=== PATIENT | female | born 1980 | race Caucasian/White ===

== ENCOUNTER 2018-04-22 08:12 | Inpatient (IN) | payer OTHER, MEDICAID ==
[~2018-04-22] VITALS: Ht 170.2 cm; Wt 67.1 kg
[~2018-04-22 08:12] MED LIST: ADDERALL 10 MG10 MG PO; ALEVE220 MG; ANTIDEPRESSANT; DICLOFENAC SODI75 MG PO; FLEXERIL PO; HYDROCODON-ACE1 EAC7 PO; HYDROCODONE-AP1 EAC6 PO; IBUPROFEN 800800 M1 PO; LAMICTAL 25 MG25 MG PO; MEDROL DOSPAK21 TA1 PO; MEDROLDOSEPACK PO; NAPROSYN500 MG PO; NORCO 5-325 TA1 EACH PO; PENICILLIN VK250 MG; PENICILLIN VK250 MG PO; PHENADOZ25 MG RC; PREDNISONE50 MG PO; PROZAC; RITALIN5 MG; ROBAXIN 750 MG750 M1 PO; TRAMADOL 50 MG50 MG PO; ZOFRAN ODT4 MG PO; [UNRECOGNIZED DRUG - REMARK]; amoxicillin
[2018-04-22 08:13] VITALS: BP 115/59
[2018-04-22 08:33] LABS: ABSOLUTE BASOPHILS 0.1 thou/uL (0.0-0.2); ABSOLUTE EOSINOPHILS 0.1 thou/uL (0.0-0.7); ABSOLUTE LYMPHOCYTES 1.2 thou/uL (0.8-5.3); ABSOLUTE MONOCYTES 0.5 thou/uL (0.0-1.2); ABSOLUTE NEUTROPHILS 7.8 thou/uL (1.6-8.1); EOSINOPHILS 1.5 %; HEMATOCRIT 42.9 % (37.0-47.0); HEMOGLOBIN 14.6 gm/dL (12.0-15.0); LYMPHOCYTES 12.2 %; MCHC 33.9 g/dL (28.0-37.0); MCV 94.3 fL (80.0-100.0); MONOCYTES 4.9 %; MPV 10.8 fl. (7.2-11.1); NUCLEATED RBCS 0 /100WBC; PLATELET COUNT* 232 thou/uL (150-400); POLYS 80.4 %; RBC 4.55 mil/uL (4.20-5.00); RDW-CV 13.5 % (10.5-14.5); WBC 9.8 thou/uL (4.0-11.0)
[2018-04-22 08:50] LABS: ANION GAP 9 mmol/L (7-16); BUN 10 mg/dL (7-18); CALCIUM 8.7 mg/dL (8.5-10.1); CHLORIDE 106 mmol/L (98-107); CO2 26 mmol/L (21-32); CREATININE 0.8 mg/dL (0.6-1.3); GLUCOSE 97 mg/dL (70-99); POTASSIUM 3.4 mmol/L (3.5-5.1); SODIUM 141 mmol/L (136-145)
[2018-04-22 09:02] LABS: ALBUMIN 3.5 g/dL (3.4-5.0); ALKALINE PHOSPHATASE 78 U/L (46-116); LIPASE 97 U/L (73-393); SGOT 12 U/L (15-37); SGPT 12 U/L (30-65); TOTAL BILIRUBIN 0.7 mg/dL (<0.1-1.0); TOTAL PROTEIN 6.6 g/dL (6.4-8.2); TROPONIN-I LEVEL <0.06 ng/mL (<0.06)
[2018-04-22 10:01] LABS: URINE BLOOD 3+ (Negative); URINE CLARITY SL CLOUDY; URINE COLOR BROWN; URINE GLUCOSE-RANDOM NEGATIVE (Negative); URINE KETONES 2+ (Negative); URINE LEUKOCYTES-REFLEX NEGATIVE (Negative); URINE NITRITE-REFLEX NEGATIVE (Negative); URINE PROTEIN 1+ (Negative); URINE SPECIFIC GRAVITY <= 1.005 (1.005-1.030); URINE UROBILINOGEN 0.2 E.U./dl (0.2-1.0)
[2018-04-22 10:11] LABS: URINE BILIRUBIN 1+ (Negative)
[2018-04-22 10:13] LABS: ICTOTEST (BILI CONFIRMATORY) Negative (Negative)
[2018-04-22 10:14] LABS: SQUAMOUS 4-10 Moderate /LPF (0-3)
[2018-04-22 10:15] LABS: BACTERIA-REFLEX 1-9 Few /HPF (None Seen); CASTS None Seen /LPF (None Seen); CRYSTALS None Seen /LPF (None Seen); MUCUS None Seen strn/LPF (None Seen); URINE RBC >20 Many /HPF (0-2); URINE WBC-REFLEX 0-5 Rare /HPF (0-5)
[2018-04-22 16:21] VITALS: BP 139/86
--- NOTE | 2018-04-22 18:51 | NUR ---
ALERT AND ORIENTED X4. HAS BEEN SLEEPING SINCE ARRIVAL TO UNIT. AROUSES EASILY. PAIN AND NAUSEA MANAGED WITH IV MEDICATION IN ED. VSS ON ROOM AIR. HOURLY ROUNDS HAVE BEEN MAINTAINED THROUGHOUT SHIFT. CALL LIGHT IS WITHIN REACH. NURSING WILL CONTINUE TO MONITOR.
[2018-04-22 20:30] VITALS: BP 107/65
[2018-04-23 01:21] LABS: HEMATOCRIT 38.4 % (37.0-47.0); HEMOGLOBIN 12.7 gm/dL (12.0-15.0); MCH 31.8 pg (26.0-34.0); MCHC 33.1 g/dL (28.0-37.0); MCV 96.1 fL (80.0-100.0); MPV 11.1 fl. (7.2-11.1); RDW-CV 13.5 % (10.5-14.5); WBC 12.1 thou/uL (4.0-11.0)
[2018-04-23 01:23] LABS: CALCIUM 8.2 mg/dL (8.5-10.1); CREATININE 0.7 mg/dL (0.6-1.3); MAGNESIUM 1.8 mg/dL (1.8-2.4); POTASSIUM 3.9 mmol/L (3.5-5.1)
--- NOTE | 2018-04-23 04:46 | NUR ---
PATIENT REMAINS ALERT AND ORIENTED X4 THROUGHOUT SHIFT. VITAL SIGNS STABLE ON ROOM AIR. IV PATENT IN THE RIGHT AC INFUSING AT 100 ML/HR. PAIN AND NAUSEA MANAGED WITH IV MEDICATION PER ORDERS. TRANSFERRING AD ETIENNE TO THE RESTROOM. STRAINING URINE. REPOSITIONING SELF IN BED. RESTING COMFORTABLY THROUGHOUT THE NIGHT. NPO STATUS AT MIDNIGHT, PATIENT STATED "I AM STILL GETTING DRINKS OUT OF THE SINK." PATIENT EDUCATION ON THE IMPORTANCE OF MAINTAINING NPO STATUS. HOURLY ROUNDING COMPLETE. CALL LIGHT WITHIN REACH. NURSING WILL CONTINUE TO MONITOR.
[2018-04-23 08:40] VITALS: BP 112/64
--- NOTE | 2018-04-23 09:33 | EKG ---
[place] [address] ELECTROCARDIOGRAM REPORT Name: LENA ORTAA Room: [address] IN [facility]#: [id number] Admission: 04/22/18 Attend Phys: Tony Dougherty, Discharge: Date of : 78 Report #: [id number] THIS REPORT FOR: //name// [facility] ED Test Date: 2018-04-22 Test Time: 08:48:28 Pat Name: AMARA ORTA Department: Room: Gender: F [place] Man: HAILEE : 1980 Requested By: Reyes Cardenas Order Number: [id number] MD: Sd Verma Measurements Intervals [place] Rate: 42 P: 69 CA: 206 QRS: 76 QRSD: 95 T: 59 QT: 475 QTc: 397 Interpretive Statements Sinus bradycardia Baseline wander in lead(s) V2,V3 No previous ECG available for comparison Electronically Signed On 04-23-2018 9:32:52 CDT by Sd Verma [email or web address] <ELECTRONICALLY SIGNED> By: Sd Verma MD, [facility] 04/23/1832 0848 Sd Verma MD, FACC /EPI
[2018-04-23] MEDS ORDERED: HYDROCODONE-AP1 EAC6 PO (13:52)
[2018-04-23] MEDS ORDERED: FLOMAX0.4 MG PO (13:52)
[2018-04-23 13:55] VITALS: BP 112/64
--- NOTE | 2018-04-23 14:00 | NUR ---
SPOKE WITH LAB TO INFORM THEM DR. FIGUEROA WOULD LIKE CULTURE RAN ON URINE SAMPLE IN LAB. THEY VERBALIZED UNDERSTANDING.
[2018-04-23 16:29] VITALS: BP 125/52
--- NOTE | 2018-04-23 16:53 | NUR ---
PATIENT DISCHARGING TO HOME AT THIS TIME. IV REMOVED. PATIENT VERBALIZES UNDERSTANDING OF DC INSTRUCTIONS. STRAINER SENT WITH PATIENT. SCRIPTS FOR NORCO AND FLOMAX GIVEN. URINE CULTURE OBTAINED PRIOR TO DC.
== END 2018-04-23 18:00 | disposition home or self-care (01) | DRG 694 ==
LOC: M.ERS 08:12 → M.TBA-ER 10:27 → M.ORTHSURG 16:55
PROVIDERS: Family Medicine; ADMIT Family Medicine
DX: N20.1 Calculus of ureter (principal); G89.29 Other chronic pain; M25.511 Pain in right shoulder; M25.552 Pain in left hip; F17.210 Nicotine dependence, cigarettes, uncomplicated; E87.6 Hypokalemia; Z79.899 Other long term (current) drug therapy

== ENCOUNTER 2019-03-13 12:56 | Emergency (ER) | payer OTHER, MEDICAID ==
[~2019-03-13] VITALS: Ht 170.2 cm; Wt 70.3 kg
[~2019-03-13 12:56] MED LIST changes: +FLOMAX0.4 MG PO
[2019-03-13] MEDS ORDERED: PERCOCET PO (13:10)
[2019-03-13] MEDS ORDERED: XANAX1 MG PO (13:11)
[2019-03-13] MEDS ORDERED: ZOFRAN ODT4 MG DISSOLVE (14:22)
[2019-03-13 14:27] VITALS: BP 133/76
== END 2019-03-13 14:28 | disposition home or self-care (01) ==
LOC: M.ERS 12:56
DX: M54.2 Cervicalgia (principal); R11.0 Nausea; M25.511 Pain in right shoulder; M25.552 Pain in left hip; G89.29 Other chronic pain; F17.210 Nicotine dependence, cigarettes, uncomplicated

== ENCOUNTER 2021-01-13 14:13 | Emergency (ER) | payer OTHER ==
[~2021-01-13] VITALS: Ht 170.2 cm; Wt 56.7 kg
[~2021-01-13 14:13] MED LIST changes: +PERCOCET PO; +XANAX1 MG PO; +ZOFRAN ODT4 MG DISSOLVE
[2021-01-13] MEDS ORDERED: KEFLEX500 M1 PO (15:01)
[2021-01-13] MEDS ORDERED: HYDROCODON-ACE1 EA11 PO (15:01)
[2021-01-13] MEDS ORDERED: BACTRIM DS TAB1 EACH PO (15:01)
[2021-01-13 15:13] VITALS: BP 141/55
== END 2021-01-13 15:13 | disposition home or self-care (01) ==
LOC: M.ERS 14:13
DX: L02.415 Cutaneous abscess of right lower limb (principal); L03.115 Cellulitis of right lower limb; F17.210 Nicotine dependence, cigarettes, uncomplicated